=== PATIENT | female | born 1950 | race Caucasian/White ===

== ENCOUNTER 2016-11-10 13:28 | Emergency (ER) | payer OTHER ==
[~2016-11-10] VITALS: Ht 167.6 cm; Wt 71.7 kg
[~2016-11-10 13:28] MED LIST: AMLO5TAB2 PO; GLYB5TAB4 PO; INSU100I19 SQ; LISI-603 PO; Metformin Hcl PO
[2016-11-10] MEDS ORDERED: KETOROLAC TROMETHAMINE INJ 30 MG/ML VIAL ONE (13:47)
[2016-11-10 13:53] VITALS: BP 126/61
[2016-11-10] MEDS ORDERED: KETOROLAC TROMETHAMINE INJ 60 MG/2 ML VIAL IM ONE (14:00)
== END 2016-11-10 13:54 | disposition home or self-care (01) ==
LOC: ER 13:30
DX: B34.9 Viral infection, unspecified (principal); I10 Essential (primary) hypertension; E11.9 Type 2 diabetes mellitus without complications; F17.200 Nicotine dependence, unspecified, uncomplicated; Z79.4 Long term (current) use of insulin
CPT/HCPCS: 96372; 99283; A4606; J1885; Z7610

== ENCOUNTER 2017-06-06 13:17 | Inpatient (IN) | payer OTHER ==
[~2017-06-06] VITALS: Ht 170.2 cm; Wt 62.6 kg
[2017-06-06] MEDS ORDERED: IV NS 0.9% 1,000 ML BAG IV ONE ×2 (13:30→16:00)
[2017-06-06 13:42] LABS: BASOPHILS # (AUTO) 0.3 /CMM (0.0-0.2); BASOPHILS % (AUTO) 2.3 % (0.0-2.0); EOSINOPHILS # (AUTO) 0.1 /CMM (0.0-0.7); HEMATOCRIT 44 % (33-45); HEMOGLOBIN 14.7 g/dL (11.5-14.8); LYMPHOCYTES # (AUTO) 2.6 /CMM (0.8-4.8); LYMPHOCYTES % (AUTO) 18.4 % (20.0-44.0); MEAN CORPUSCULAR HEMOGLOBIN 30 PG (26.0-33.0); MEAN CORPUSCULAR HGB CONC 34 g/dl (31.0-36.0); MEAN CORPUSCULAR VOLUME 87 fL (82-100); MONOCYTES # (AUTO) 0.7 /CMM (0.1-1.30); NEUTROPHILS # (AUTO) 10.2 /CMM (1.8-8.9); NEUTROPHILS % (AUTO) 73.3 % (43.0-81.0); PLATELET COUNT (AUTO) 178 /CMM (150-450); RDW COEFFICIENT OF VARIATION 11.9 (11.5-15.0); RED BLOOD CELL COUNT(AUTO) 4.99 MIL/uL (4.0-5.2); WHITE BLOOD COUNT (AUTO) 13.9 K/uL (4.3-11.0)
[2017-06-06] MEDS ORDERED: IV LR 1000 ML 1,000 ML IV ONE (13:44)
[2017-06-06 13:55] LABS: ALBUMIN 3.6 g/dL (3.4-5.0); BILIRUBIN,DIRECT 0.2 mg/dL (0.0-0.2); BILIRUBIN,TOTAL 0.9 mg/dL (0.2-1.0); CALCIUM, SERUM 8.6 mg/dL (8.5-10.1); CREATININE 1.7 mg/dL (0.6-1.3); POTASSIUM 3.7 mmol/L (3.5-5.1); TOTAL PROTEIN, SERUM 6.5 g/dL (6.4-8.2)
[2017-06-06 13:58] LABS: TROPONIN I 0.151 ng/mL (0.00-0.056)
--- NOTE | 2017-06-06 14:03 | NUR ---
PT REC;D TO ER VIA [facility] ,E HAD SUGAR 451 NOTIFIED IV LABS SENT TO LAB IV LEFT AC 18G HEPLOCKED INFUSING LR ABD NS BOLUS PER
[2017-06-06 14:50] LABS: ABG BASE EXCESS -5.3 mmol/L; ABG PCO2 27.1 mmHg (35.0-45.0); ABG PH 7.426 (7.350-7.450); AaDO2 45.3 mmHg; COHb 2.5 % (0.5-1.5); MetHb 0.5 % (0.0-1.5); O2Hb 91.2 % (94.0-97.0); SITE, ABG Right Radial
[2017-06-06] MEDS ORDERED: ASPIRIN 325 MG TABLET PO ONE (15:00)
[2017-06-06] MEDS ORDERED: SITA100T PO (15:00)
[2017-06-06] MEDS ORDERED: CALC500T52 PO (15:00)
[2017-06-06] MEDS ORDERED: ASPI81TA2 PO (15:00)
[2017-06-06] MEDS ORDERED: METF500T4 PO (15:00)
[2017-06-06] MEDS ORDERED: GABA-534 PO (15:00)
[2017-06-06] MEDS ORDERED: FAMOTIDINE/PF INJ 20 MG/2 ML VIAL IV ONE ×2 (15:00→15:04)
[2017-06-06] MEDS ORDERED: ATOR10TA PEG (15:00)
[2017-06-06] MEDS ORDERED: ONDANSETRON HCL/PF 4 MG/2 ML VIAL IVP ONE (15:00)
[2017-06-06] MEDS ORDERED: ASPIRIN 325 MG TABLET ONE (15:05)
[2017-06-06] MEDS ORDERED: ONDANSETRON HCL/PF 4 MG/2 ML VIAL ONE (15:05)
--- NOTE | 2017-06-06 15:07 | NUR ---
PAGED DR ELLINGTON FOR PANEL ADMISSION
--- NOTE | 2017-06-06 15:13 | NUR ---
TELE [phone]
[2017-06-06 16:25] LABS: APPEARANCE,URINE Slightly Cloudy (CLEAR); BILIRUBIN,URINE Negative (NEGATIVE); BLOOD, URINE Trace-intact Ery/uL (NEGATIVE); COLOR,URINE Yellow (YELLOW); KETONES,URINE Negative (NEGATIVE); LEUKOCYTE ESTERASE ,URINE Trace (NEGATIVE); NITRITE, URINE Negative (NEGATIVE); PROTEIN,URINE Negative (NEGATIVE); UGLUCOSE 500 MG/DL mg/dL (NEGATIVE); UROBILINOGEN,URINE 0.2 EU/dL (0.2)
--- NOTE | 2017-06-06 16:25 | NUR ---
IN AND OUT CATH UA SENT TO LAB . 2 ND LACTIC ACID DRAWN . PT SLEEPING RESP EVEN UNLABORED
[2017-06-06] MEDS ORDERED: PIPERACILLIN /TAZOBACTAM 3.375 G in IV D5W 50 ML IV STA (16:53)
--- NOTE | 2017-06-06 17:11 | NUR ---
CALLED NURSING DOUBLING MACHINE OPERATOR FOR PICC LINE
[2017-06-06 17:16] LABS: BACTERIA,URINE Few /HPF (None Seen); CLINITEST,URINE 1%; SQUAMOUS EPITHELIAL CELL,UR Moderate /HPF (None Seen)
[2017-06-06 17:17] LABS: YEAST,URINE Many /HPF (None Seen)
[2017-06-06] MEDS ORDERED: ZOLPIDEM TARTRATE 5 MG TABLET PO PRN (17:30)
[2017-06-06] MEDS ORDERED: ACETAMINOPHEN 325 MG TABLET PO PRN (17:30)
[2017-06-06] MEDS ORDERED: MAGNESIUM HYDROXIDE 30 ML UDC PO PRN (17:30)
[2017-06-06] MEDS: CALCIUM CARBONATE (1250) 500 MG TABLET PO SCH (17:30)
[2017-06-06] MEDS ORDERED: DEXTROSE 50%-WATER 50 ML DISP.SYRIN IV PRN (17:30)
[2017-06-06] MEDS: LISINOPRIL (20MG) 20 MG TABLET PO SCH (17:30)
[2017-06-06] MEDS ORDERED: HYDROCODONE/APAP 5/325MG 1 EACH TABLET PO PRN (17:30)
[2017-06-06] MEDS ORDERED: MAG HYDROX/AL HYDROX/SIMETH 30 ML UDC PO PRN (17:30)
[2017-06-06] MEDS ORDERED: ONDANSETRON HCL/PF 4 MG/2 ML VIAL IVP PRN (17:30)
[2017-06-06] MEDS ORDERED: Medication Not On Formulary EA (Sitagliptin Phosphate (Januvia) 100 MG) PO SCH (17:30)
[2017-06-06] MEDS: AMLODIPINE BESYLATE 5 MG TABLET PO SCH (17:30)
[2017-06-06] MEDS ORDERED: Z GUARD REMEDY 2 OZ OINT TP PRN (17:30)
--- NOTE | 2017-06-06 17:30 | NUR ---
PT STABLE AMB TO BR VOIDED BACK BED
--- NOTE | 2017-06-06 17:35 | NUR ---
FOLLOWED UP WITH NURSING SUP FOR PICC LINE
[2017-06-06] MEDS ORDERED: ENOXAPARIN SODIUM 40 MG/0.4 ML DISP.SYRIN SQ SCH (18:00)
--- NOTE | 2017-06-06 18:00 | NUR ---
REPORT ELIU Hurt TO
--- NOTE | 2017-06-06 18:00 | NUR ---
REPORT CALLED TO CLAU KELLER FOR [facility]
--- NOTE | 2017-06-06 18:05 | NUR ---
HOME ADVISOR INITIAL NOTES PATIENT IN ROOM, AMBULATED TO BED FROM [facility]. PATIENT ORIENTED TO ROOM AND CALL LIGHT. NO SOB OR DISTRESS NOTED AT THIS TIME. PATIENT DENIES PAIN. HEART RATE SR IN THE 70S WITH BBB. BED IN A LOW POSITION, CALL LIGHT WITHIN PATIENT REACH. WILL CONTINUE TO MONITOR.
[2017-06-06 18:12] VITALS: BP 92/48
[2017-06-06] MEDS: INSULIN REGULAR, HUMAN 100 UNIT/ML 3 ML VIAL SQ PRN ×2 (18:26→21:32)
[2017-06-06] MEDS: IV NS 0.9% 1,000 ML IV PRN (18:27)
--- NOTE | 2017-06-06 18:30 | NUR ---
RN NOTES CALLED [facility] AND INFORMED MD OF 406 BLOOD SUGAR ALSO INFORMED MD THAT THE 20 UNITS WERE GIVEN PER PROTOCOL. STATES TO START IV FLUIDS AND RECHECK IN FOUR HOURS PER ORDERS. WILL MONITOR PATIENT.
[2017-06-06] MEDS: NYSTATIN (PYXIS) 500,000 UNIT/5 ML ORAL.SUSP PO SCH (18:39)
[2017-06-06] MEDS: ATORVASTATIN 10 MG TABLET PEG SCH (18:39)
[2017-06-06] MEDS: GABAPENTIN 300 MG CAPSULE PO SCH (18:39)
[2017-06-06] MEDS: PANTOPRAZOLE 40 MG TABLET.DR PO SCH (18:39)
[2017-06-06] MEDS: BLOOD SUGAR DIAGNOSTIC 1 EACH STRIP IN SCH ×2 (18:39→21:30)
--- NOTE | 2017-06-06 19:07 | NUR ---
TOWEL HEMMER CLOSING NOTES NO SIGNIFICANT CHANGES IN PATIENT CONDITION. HEART RATE REMAINS UNCHANGED ON THE MONITOR, SR 72 WITH BBB. PATIENT CURRENTLY EATING AFTER 2O UNITS INSULIN GIVEN, NO SIGNS OR SYMPTOMS OF HYPOGLYCEMIA. BED IN A LOW POSITION, CALL LIGHT WITHIN PATIENT REACH. WILL ENDORSE FOR CATINA.
--- NOTE | 2017-06-06 19:10 | NUR ---
RN OPEN NOTES RECEIVED PATIENT AWAKE IN BED. A/O X4. NO SIGNS OF DISTRESS OR DISCOMFORT. BREATHING EVEN AND UNLABORED. ON TELE MONITORING WITH SR 70-80'S WITH BBB NOTED. IV ACCESS IN LAC WITH NS INFUSING, NO SIGNS OF REDNESS OR INFILTRATION. BED IN LOW LOCKED POSITION WITH SIDE RAILS X2. CALL LIGHT WITHIN REACH. WILL CONTINUE TO MONITOR.
[2017-06-06 20:00] VITALS: BP 96/56
[2017-06-06] MEDS: METOPROLOL TARTRATE 25 MG TABLET PO SCH (21:00)
[2017-06-07] VITALS: BP 92/50
[2017-06-07] MEDS: BLOOD SUGAR DIAGNOSTIC 1 EACH STRIP IN SCH ×5 (01:30→16:37)
[2017-06-07] MEDS: IV NS 0.9% 1,000 ML IV PRN ×2 (02:43→12:19)
[2017-06-07 04:00] VITALS: BP 90/48
[2017-06-07] MEDS: INSULIN REGULAR, HUMAN 100 UNIT/ML 3 ML VIAL SQ PRN ×4 (05:32→16:47)
[2017-06-07 06:40] LABS: BASOPHILS % (AUTO) 0.2 % (0.0-2.0); EOSINOPHILS # (AUTO) 0.1 /CMM (0.0-0.7); EOSINOPHILS % (AUTO) 1.9 % (0.0-6.0); HEMATOCRIT 37 % (33-45); HEMOGLOBIN 12.8 g/dL (11.5-14.8); LYMPHOCYTES # (AUTO) 3.5 /CMM (0.8-4.8); MEAN CORPUSCULAR HEMOGLOBIN 30 PG (26.0-33.0); MEAN CORPUSCULAR HGB CONC 34 g/dl (31.0-36.0); MEAN CORPUSCULAR VOLUME 88 fL (82-100); MONOCYTES # (AUTO) 0.5 /CMM (0.1-1.30); NEUTROPHILS # (AUTO) 3.6 /CMM (1.8-8.9); NEUTROPHILS % (AUTO) 46.9 % (43.0-81.0); PLATELET COUNT (AUTO) 141 /CMM (150-450); RDW COEFFICIENT OF VARIATION 12.9 (11.5-15.0); RED BLOOD CELL COUNT(AUTO) 4.22 MIL/uL (4.0-5.2); WHITE BLOOD COUNT (AUTO) 7.7 K/uL (4.3-11.0)
[2017-06-07 06:54] LABS: ALBUMIN 2.6 g/dL (3.4-5.0); BILIRUBIN,TOTAL 0.4 mg/dL (0.2-1.0); CALCIUM, SERUM 7.4 mg/dL (8.5-10.1); CREATININE 0.6 mg/dL (0.6-1.3); MAGNESIUM 1.5 mg/dL (1.8-2.4); PHOSPHORUS 3.1 mg/dL (2.5-4.9); POTASSIUM 2.9 mmol/L (3.5-5.1); TOTAL PROTEIN, SERUM 5.2 g/dL (6.4-8.2)
[2017-06-07 07:01] LABS: THYROID STIMULATING HORMONE 0.844 uIU/mL (0.358-3.74)
--- NOTE | 2017-06-07 07:25 | NUR ---
RN CLOSING NOTES PATIENT AWAKE IN BED. A/O X4. NO SIGNS OF DISTRESS OR DISCOMFORT. BREATHING EVEN AND UNLABORED. ON TELE MONITORING WITH SR 70-80'S WITH BBB NOTED. IV ACCESS IN LAC WITH NS INFUSING, NO SIGNS OF REDNESS OR INFILTRATION. NO SIGNIFICANT CHANGES THROUGH THE NIGHT. ALL NEEDS MET. BED IN LOW LOCKED POSITION WITH SIDE RAILS X2. CALL LIGHT WITHIN REACH. ENDORSED TO AM SHIFT FOR CATINA.
--- NOTE | 2017-06-07 07:40 | NUR ---
VACUUM FRAME OPERATOR OPENING NOTE RECEIVED PATIENT AWAKE IN BED. A/O X4. DENIED PAIN, DISCOMFORT AT THIS TIME. BREATHING EVEN AND UNLABORED. ON TELE MONITORING WITH SR 7 WITH BBB NOTED. IV ACCESS IN LAC WITH NS INFUSING, NO SIGNS OF REDNESS OR INFILTRATION. BED IN LOW LOCKED POSITION WITH SIDE RAILS X2. CALL LIGHT WITHIN REACH. WILL CONTINUE TO MONITOR.
[2017-06-07 08:00] VITALS: BP 105/65
[2017-06-07] MEDS: NYSTATIN (PYXIS) 500,000 UNIT/5 ML ORAL.SUSP PO SCH ×3 (08:09→16:32)
[2017-06-07] MEDS: ATORVASTATIN 10 MG TABLET PEG SCH (08:09)
[2017-06-07] MEDS: GABAPENTIN 300 MG CAPSULE PO SCH (08:10)
[2017-06-07] MEDS: CALCIUM CARBONATE (1250) 500 MG TABLET PO SCH (08:10)
[2017-06-07] MEDS: PANTOPRAZOLE 40 MG TABLET.DR PO SCH (08:10)
[2017-06-07] MEDS: METOPROLOL TARTRATE 25 MG TABLET PO SCH (08:11)
[2017-06-07] MEDS: AMLODIPINE BESYLATE 5 MG TABLET PO SCH (08:11)
[2017-06-07] MEDS: LISINOPRIL (20MG) 20 MG TABLET PO SCH (08:15)
--- NOTE | 2017-06-07 08:30 | NUR ---
AUTOMATION APPLICATION ENGINEER NOTES MD ELLINGTON AWARE OF PATIENT LAB VALUES. NO NEW ORDERS AT THIS TIME
[2017-06-07] MEDS ORDERED: POTASSIUM CHLORIDE 20 MEQ TAB.PRT.SR PO ONE (08:34)
[2017-06-07 09:00] VITALS: BP 105/65
[2017-06-07] MEDS ORDERED: METFORMIN 500 MG TABLET PO SCH ×2 (09:00→21:00)
[2017-06-07] MEDS ORDERED: ASPIRIN 81 MG TAB.CHEW PO SCH (09:00)
[2017-06-07] MEDS ORDERED: LINAGLIPTIN 5 MG TABLET PO SCH (09:00)
--- NOTE | 2017-06-07 09:10 | NUR ---
TELE [place] NOTE PER DR ELLINGTON'S ORDER PATIENT'S DIET HASD BEEN ADVANCED TO [facility].
[2017-06-07] MEDS: Magnesium 1GM/D5W 100ML PREMIX 100 ML IV SCH ×2 (10:00→11:42)
[2017-06-07 13:41] VITALS: BP 94/54
[2017-06-07 15:00] VITALS: BP 128/78
[2017-06-07] MEDS ORDERED: LISINOPRIL (5MG) 5 MG TABLET PO SCH (15:00)
--- NOTE | 2017-06-07 17:03 | NUR ---
TALENT COORDINATOR NOTES PATIENT EDUCATED ON TRANSFER FOR CATH PER CARDIOLOGY. PATIENT STATES SHE NEEDS TO GO HOME AND HANDLE HER BUSINESS "[employer]" THINGS NEED TO BE TAKEN CARE OF; JEWELRY. PATIENT EDUCATED ON IMPORTANCE OF TRANSFER AND PATIENT STILL REFUSING. NOTIFIED MD MUNGUIA AND HE IS AWARE. MESSAGE TO HAMLIN TO NOTIFY OF AMJohnson.
--- NOTE | 2017-06-07 18:00 | NUR ---
AMA RN NOTE PATIENT IV REMOVED PRESSURE AND DRESSING APPLIED NO BLEEDING. CATH TIP INTACT. PATIENT GIVEN BUS TOKEN PER REQUEST. PATIENT EDUCATED ON REPERCUSSIONS LEAVING AMA AND STATED UNDERSTANDING. PATIENT WAS AGREEABLE TO DC MATERIAL AND SIGNED AMA FORM AND BELONGINGS LIST. PATIENT LEFT AMA AGAINST MD Cathy ELLINGTON REQUEST AND HOUSEKEEPING/LAUNDRY SUPERVISOR DR MUNGUIA.
--- NOTE | 2017-06-07 19:30 | NUR ---
MICROWAVE ENGINEER NOTES Unique Id: [id number]
[2017-06-07] MEDS ORDERED: CARVEDILOL 3.125 MG TABLET PO SCH (21:00)
== END 2017-06-07 18:00 | disposition left against medical advice (07) | DRG 420 ==
LOC: ER 13:21 → TELE 15:35
PROVIDERS: ADMIT Internal Medicine; ATTEND Internal Medicine
DX: E11.65 Type 2 diabetes mellitus with hyperglycemia (principal); N17.0 Acute kidney failure with tubular necrosis; I21.4 Non-ST elevation (NSTEMI) myocardial infarction; E11.00 Type 2 diabetes mellitus with hyperosmolarity without nonketotic hyperglycemic-hyperosmolar coma (NKHHC); G93.41 Metabolic encephalopathy; B37.0 Candidal stomatitis; I42.9 Cardiomyopathy, unspecified; Z79.82 Long term (current) use of aspirin; Z88.2 Allergy status to sulfonamides; Z79.4 Long term (current) use of insulin; Z88.1 Allergy status to other antibiotic agents; Z91.041 Radiographic dye allergy status; Z91.040 Latex allergy status; F17.200 Nicotine dependence, unspecified, uncomplicated; Z98.890 Other specified postprocedural states; Z79.84 Long term (current) use of oral hypoglycemic drugs; E78.5 Hyperlipidemia, unspecified; E87.6 Hypokalemia; I10 Essential (primary) hypertension; I25.10 Atherosclerotic heart disease of native coronary artery without angina pectoris; I44.7 Left bundle-branch block, unspecified; Z79.899 Other long term (current) drug therapy; F10.21 Alcohol dependence, in remission; R65.10 Systemic inflammatory response syndrome (SIRS) of non-infectious origin without acute organ dysfunction
CPT/HCPCS: 36415; 36600; 70450-TC; 71010-TC; 80048-TC; 80053-TC; 80061-TC; 80076-TC; 81000-TC; 82803-TC; 82962-TC; 83605-TC; 83735-TC; 84100-TC; 84443-TC; 84484-TC; 85025-TC; 87040-TC; 87081-TC; 87086-TC; 93307-TC; A4606; J1650; J1815; J2405; J2543; J3475; J3490; J7030; J7060; J7120; Z7610

== ENCOUNTER 2017-06-20 18:08 | Emergency (ER) | payer OTHER ==
[~2017-06-20] VITALS: Ht 167.6 cm; Wt 63.5 kg
[2017-06-20 18:08] VITALS: BP 123/63
[~2017-06-20 18:08] MED LIST changes: +ASPI81TA2 PO; +ATOR10TA PEG; +CALC500T52 PO; +GABA-534 PO; -GLYB5TAB4 PO; -INSU100I19 SQ; +METF500T4 PO; -Metformin Hcl PO; +SITA100T PO
[2017-06-20] MEDS ORDERED: ONDANSETRON 4 MG TAB.RAPDIS ONE (18:45)
[2017-06-20] MEDS ORDERED: MORPHINE SULFATE INJ 10 MG/ML DISP.SYRIN ONE (18:46)
[2017-06-20] MEDS ORDERED: MORPHINE SULFATE INJ 2 MG/ML DISP.SYRIN IM ONE (19:00)
[2017-06-20] MEDS ORDERED: ONDANSETRON 4 MG TAB.RAPDIS SL ONE (19:00)
== END 2017-06-20 20:20 | disposition home or self-care (01) ==
LOC: ER 18:12
DX: M54.42 Lumbago with sciatica, left side (principal); I10 Essential (primary) hypertension; E10.8 Type 1 diabetes mellitus with unspecified complications; F17.200 Nicotine dependence, unspecified, uncomplicated; Z88.2 Allergy status to sulfonamides; Z88.1 Allergy status to other antibiotic agents; Z91.041 Radiographic dye allergy status; Z91.040 Latex allergy status
CPT/HCPCS: 99283; A4606; Z7610

== ENCOUNTER 2017-07-25 10:26 | Emergency (ER) | payer OTHER ==
[~2017-07-25] VITALS: Ht 167.6 cm; Wt 63.5 kg
[2017-07-25] MEDS ORDERED: MECLIZINE HCL 12.5 MG TABLET PO ONE (11:00)
--- NOTE | 2017-07-25 11:00 | NUR ---
assume pt care. resting in bed. here for dizziness x 2 days. wants a med refill. also c/o sciatic nerve pain. states ran out ouf norco too. seen by trent. w/ orders. will carry out.
[2017-07-25] MEDS ORDERED: MECLIZINE HCL 25 MG TABLET ONE (11:12)
--- NOTE | 2017-07-25 11:16 | NUR ---
medicated as ordered.
--- NOTE | 2017-07-25 11:46 | NUR ---
pt states feeling much better. Patient discharged to home in stable condition. Written and verbal after care instructions given. Patient verbalizes understanding of instruction.
[2017-07-25 11:48] VITALS: BP 115/60
== END 2017-07-25 11:48 | disposition home or self-care (01) ==
LOC: ER 10:29
DX: R42 Dizziness and giddiness (principal); M54.40 Lumbago with sciatica, unspecified side; G89.29 Other chronic pain; E11.9 Type 2 diabetes mellitus without complications; I10 Essential (primary) hypertension; F17.200 Nicotine dependence, unspecified, uncomplicated; Z79.4 Long term (current) use of insulin; Z79.82 Long term (current) use of aspirin; Z88.2 Allergy status to sulfonamides; Z88.1 Allergy status to other antibiotic agents; Z91.040 Latex allergy status; Z88.8 Allergy status to other drugs, medicaments and biological substances; Z90.89 Acquired absence of other organs
CPT/HCPCS: A4606; J8597; Z7610

== ENCOUNTER 2017-09-21 14:26 | Emergency (ER) | payer OTHER ==
[~2017-09-21] VITALS: Ht 162.6 cm; Wt 65.8 kg
[2017-09-21 14:32] VITALS: BP 117/76
[2017-09-21] MEDS ORDERED: HYDROCODONE/APAP 5/325MG 1 EACH TABLET ONE (14:59)
[2017-09-21] MEDS ORDERED: HYDROCODONE/APAP 5/325MG 1 EACH TABLET PO ONE (15:00)
== END 2017-09-21 15:08 | disposition home or self-care (01) ==
LOC: ER 14:28
DX: M54.42 Lumbago with sciatica, left side (principal); E11.9 Type 2 diabetes mellitus without complications; I10 Essential (primary) hypertension; F17.200 Nicotine dependence, unspecified, uncomplicated; Z79.4 Long term (current) use of insulin; Z79.82 Long term (current) use of aspirin; Z90.89 Acquired absence of other organs; Z88.2 Allergy status to sulfonamides; Z88.1 Allergy status to other antibiotic agents; Z88.8 Allergy status to other drugs, medicaments and biological substances; Z91.040 Latex allergy status
CPT/HCPCS: 99282; A4606; Z7610

== ENCOUNTER 2017-10-28 14:43 | Emergency (ER) | payer OTHER ==
[~2017-10-28] VITALS: Ht 167.6 cm; Wt 65.8 kg
[~2017-10-28 14:43] MED LIST changes: +ASPI-1169 PO; -ASPI81TA2 PO
--- NOTE | 2017-10-28 17:37 | NUR ---
PLACED TO ER 15; AWAITING FOR MD TO SEE
[2017-10-28] MEDS ORDERED: HYDROCODONE/APAP 5/325MG 1 EACH TABLET PO ONE (18:30)
[2017-10-28] MEDS ORDERED: HYDROCODONE/APAP 5/325MG 1 EACH TABLET ONE (18:43)
[2017-10-28 19:53] VITALS: BP 124/71
== END 2017-10-28 19:54 | disposition home or self-care (01) ==
LOC: ER 14:46
DX: S20.211A Contusion of right front wall of thorax, initial encounter (principal); E11.9 Type 2 diabetes mellitus without complications; I10 Essential (primary) hypertension; F17.200 Nicotine dependence, unspecified, uncomplicated; Z88.2 Allergy status to sulfonamides; Z79.4 Long term (current) use of insulin; Z79.82 Long term (current) use of aspirin; Z88.1 Allergy status to other antibiotic agents; Z88.8 Allergy status to other drugs, medicaments and biological substances; Z91.040 Latex allergy status; W01.0XXA Fall on same level from slipping, tripping and stumbling without subsequent striking against object, initial encounter; Y93.89 Activity, other specified; Y92.89 Other specified places as the place of occurrence of the external cause; Y99.8 Other external cause status
CPT/HCPCS: 71100; 99284; A4606; Z7610

== ENCOUNTER 2018-08-11 03:24 | Emergency (ER) | payer MEDICARE, OTHER ==
[~2018-08-11] VITALS: Ht 160 cm; Wt 76.7 kg
[~2018-08-11 03:24] MED LIST changes: -AMLO5TAB2 PO; +AMLO5TAB7 PO; +METF-440 PO; -METF500T4 PO
[2018-08-11 03:25] VITALS: BP 130/77
== END 2018-08-11 04:05 | disposition home or self-care (01) ==
LOC: ER 03:24
DX: K08.9 Disorder of teeth and supporting structures, unspecified (principal); I10 Essential (primary) hypertension; E11.9 Type 2 diabetes mellitus without complications; M54.30 Sciatica, unspecified side; F17.200 Nicotine dependence, unspecified, uncomplicated; Z98.890 Other specified postprocedural states; Z90.89 Acquired absence of other organs; Z88.8 Allergy status to other drugs, medicaments and biological substances; Z88.2 Allergy status to sulfonamides; Z88.1 Allergy status to other antibiotic agents; Z60.2 Problems related to living alone; Z79.82 Long term (current) use of aspirin; Z91.040 Latex allergy status
CPT/HCPCS: 99283; A4606; Z7610

== ENCOUNTER 2024-05-06 11:16 | Emergency (ER) | payer MEDICARE, OTHER ==
[~2024-05-06] VITALS: Ht 170.2 cm; Wt 56.7 kg
[~2024-05-06 11:16] MED LIST changes: +AMLO-212 PO; -AMLO5TAB7 PO; -LISI-603 PO; +LISI20TA30 PO
[2024-05-06] MEDS: IV NS 0.9% 1,000 ML BAG IV ONE (12:27)
[2024-05-06 12:44] VITALS: BP 126/69; TEMP 98.6; O2SAT 99
== END 2024-05-06 12:25 | disposition left against medical advice (07) ==
LOC: ER 11:32
DX: R53.1 Weakness (principal); Z53.21 Procedure and treatment not carried out due to patient leaving prior to being seen by health care provider
CPT/HCPCS: J7030